=== PATIENT | female | born 1995 | race Caucasian/White ===

== ENCOUNTER 2016-12-13 13:50 | Emergency (ER) | payer BC ==
[2016-12-13 15:04] LABS: HEMOGLOBIN 14.1 gm/dl (12.3-15.3); RED BLOOD COUNT 4.72 M/UL (4.00-5.10); WHITE BLOOD COUNT 10.5 K/UL (4.5-11.0)
[2016-12-13 15:23] LABS: BUN/CREATININE RATIO 14 (0-10)
== END 2016-12-13 19:14 | disposition home or self-care (01) ==
LOC: ER1 13:50
PROVIDERS: Specialist/Technologist Athletic Trainer
DX: R51 Headache (principal); R42 Dizziness and giddiness; Z90.49 Acquired absence of other specified parts of digestive tract
CPT/HCPCS: 36415; 70450; 80053; 81001; 84439; 84443; 84703; 85025; 93880; 96374; 99284; J2930; J7030

== ENCOUNTER → 2020-12-10 | Outpatient (CLI) | payer BC ==
[~2020-12-10] MED LIST: COLACE 100MG C100 MG PO; IBUPROFEN600 MG PO; NORCO 5-325 TA1 EACH PO
== END ==
LOC: KOH-I 08:54
DX: R79.89 Other specified abnormal findings of blood chemistry (principal); K76.0 Fatty (change of) liver, not elsewhere classified
CPT/HCPCS: 76705